=== PATIENT | male | born 1995 | race Caucasian/White ===

== ENCOUNTER 2024-09-28 14:28 | Emergency (ER) | payer MEDICAID, SELFPAY ==
[2024-09-28 14:39] VITALS: BP 135/92; PULSE 99; RESP 20; TEMP 36.7; O2SAT 99
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
[2024-09-28 15:26] VITALS: BMI 31.0
[2024-09-28] MEDS: LIDOCAINE HCL 1% 20 ML VIAL 10 ML INFL (15:50)
[2024-09-28] MEDS: DIPHTH,PERTUSS(ACELL),TET VAC 0.5 ML SYR- ADULT IMi (15:50)
[2024-09-28 16:07] VITALS: BP 148/91; PULSE 84; RESP 16; O2SAT 100
== END 2024-09-28 16:20 | disposition home or self-care (01) ==
PROVIDERS: Emergency Provider Emergency Medicine
DX: S01.311A Laceration without foreign body of right ear, initial encounter (principal); Y04.0XXA Assault by unarmed brawl or fight, initial encounter; S01.81XA Laceration without foreign body of other part of head, initial encounter; Z23 Encounter for immunization
CPT/HCPCS: 12013; 90715; 99283; J3490